=== PATIENT | female | born 1970 | race Caucasian/White ===

== ENCOUNTER 2016-12-10 22:47 | Emergency (ER) | payer BC ==
[2016-12-10 22:58] VITALS: RESP 18
[2016-12-10] MEDS ORDERED: KETOROLAC 30 MG/ML 1 ML VIAL IVP STA (23:02)
[2016-12-10] MEDS ORDERED: SODIUM CHLORIDE 0.9% 500 ML IV STA (23:02)
--- NOTE | 2016-12-10 23:07 | ED ---
Chest Pain HPI - General Chief Complaint: Chest Pain Stated Complaint: Chest Pain Time Seen by Provider: 12/10/16 22:52 Source: patient, RN notes reviewed Mode of arrival: wheelchair Limitations: no limitations - History of Present Illness Initial Comments: This is a 46-year-old female with a benign past medical history who presents with complaints of the onset of chest heaviness for the past several days. She states currently is 78/10 severity increases with deep breathing and certain movements. She is a smoker she quit about 10 years ago she is not recall doing anything strenuous she does state her ALLERGIES which are seasonal have been acting up and believes this may be part was going on. Also of note she did have Botox injections for TMJ 4 days ago. She is not sure whether this may be related. She has any fevers chills sweats she has no known history of any lung problems or heart disease. No abdominal pain no other symptoms to report at this time. MD Complaint: chest pain - Related Data Previous Rx's Medication Instructions Recorded Ibuprofen [Motrin] 600 mg PO Q6HR PRN #20 tab 12/11/16 Allergies Allergy/AdvReac Type Severity Reaction Status Date / Time No Known Allergies Allergy Verified 12/10/16 22:58 Review of Systems ROS Statement: Those systems with pertinent positive or pertinent negative responses have been documented in the HPI. ROS Other: All systems not noted in ROS Statement are negative. EKG Findings - EKG Results: EKG: interpreted by MEGAN, sinus rhythm (Normal sinus rhythm rate is 70. Interval 146 QRS duration 80 QT since QTC of 372/401 this is a normal-appearing EKG) Past Medical History Past Medical History: No Reported History History of Any Multi-Drug Resistant Organisms: None Reported Past Surgical History: Hysterectomy Past Psychological History: No Psychological Hx Reported Smoking Status: Former smoker Past Alcohol Use History: Occasional Past Drug Use History: None Reported General Exam - General Exam Comments Initial Comments: This is a well-developed well-nourished awake alert oriented x 3 female Limitations: no limitations General appearance: alert, in no apparent distress Head exam: Present: atraumatic, normocephalic, normal inspection Eye exam: Present: normal appearance, PERRL, EOMI. Absent: scleral icterus, conjunctival injection, periorbital swelling ENT exam: Present: mucous membranes dry Neck exam: Present: normal inspection. Absent: tenderness, meningismus, lymphadenopathy Respiratory exam: Present: normal lung sounds bilaterally, chest wall tenderness (Reproducible discomfort to palpation of the costochondral costal sternal margins.). Absent: respiratory distress, wheezes, rales, rhonchi, stridor Cardiovascular Exam: Present: regular rate, normal rhythm, normal heart sounds. Absent: systolic murmur, diastolic murmur, rubs, gallop, clicks GI/Abdominal exam: Present: soft, normal bowel sounds. Absent: distended, tenderness, guarding, rebound, rigid Extremities exam: Present: normal inspection, full ROM, normal capillary refill. Absent: tenderness, pedal edema, joint swelling, calf tenderness Back exam: Present: normal inspection Neurological exam: Present: alert, oriented X3, CN II-XII intact Psychiatric exam: Present: normal affect, normal mood Skin exam: Present: warm, dry, intact, normal color. Absent: rash Course Vital Signs 12/10/16 12/10/16 12/11/16 22:56 23:20 00:17 Temperature 98.9 F 98.7 F Pulse Rate 89 63 68 Pulse Rate [ 63 Sledger ] Respiratory 18 18 18 Rate Blood Pressure 136/82 133/72 111/64 O2 Sat by Pulse 97 99 97 Oximetry Chest Pain MDM - MDM I did review the imaging and reports no acute findings. I did a long discussion with the patient and her regarding the findings the patient is pain-free at this time presentation is consistent with costochondritis and chest wall pain. Patient will be placed on anti-inflammatories Disposition Clinical Impression: Chest wall syndrome, Costalchondritis Disposition: HOME SELF-CARE Condition: Good Instructions: Costochondritis (ED) Prescriptions: Ibuprofen [Motrin] 600 mg PO Q6HR PRN #20 tab PRN Reason: Pain Referrals: Epifanio Hutchinson MD [Primary Care Provider] - 1-2 days
[2016-12-10 23:18] LABS: Basophils # (A) 0.1 k/uL (0-0.2); Basophils % (A) 1 %; CH 31.1; CHCM 33.7; Eosinophils # (A) 0.3 k/uL (0-0.7); Eosinophils % (A) 4 %; HCT 41.8 % (34.0-46.0); HDW 2.17; HGB 13.9 gm/dL (11.4-16.0); Luc # (Auto) 0.19; Luc % (Auto) 2; Lymphocytes # (A) 3.3 k/uL (1.0-4.8); Lymphocytes % (A) 37 %; MCH 30.9 pg (25.0-35.0); MCHC 33.3 g/dL (31.0-37.0); MCV 92.8 fL (80.0-100.0); Mean Platelet Volume 7.4; Monocytes # (A) 0.4 k/uL (0-1.0); Monocytes % (A) 5 %; Neutrophils # (A) 4.5 k/uL (1.3-7.7); Neutrophils % (A) 52 %; RDW 13.1 % (11.5-15.5); WBC 8.8 k/uL (3.8-10.6); WBC (Perox) 9.06
[2016-12-10 23:30] LABS: ALT 27 U/L (9-52); AST 23 U/L (14-36); Alkaline Phosphatase 61 U/L (38-126); Amylase 87 U/L (30-110); Anion Gap 9 mmol/L; Blood Urea Nitrogen 18 mg/dL (7-17); Calcium 9.4 mg/dL (8.4-10.2); Carbon Dioxide 22 mmol/L (22-30); Chloride 108 mmol/L (98-107); Glucose 82 mg/dL (74-99); Magnesium 2.1 mg/dL (1.6-2.3); Non-African American GFR(MDRD) >60 (>60 ml/min/1.73 sqM); Potassium 4.4 mmol/L (3.5-5.1); Sodium 139 mmol/L (137-145); Total Bilirubin 0.4 mg/dL (0.2-1.3); Total Protein 6.7 g/dL (6.3-8.2)
[2016-12-10 23:37] LABS: Partial Thromboplastin Time 26.6 sec (22.0-30.0)
[2016-12-10 23:44] LABS: Creatine Kinase 88 U/L (30-135)
[2016-12-10 23:58] LABS: Creatine Kinase MB 0.7 ng/mL (0.0-2.4); Troponin I <0.012 ng/mL (0.000-0.034)
[2016-12-11 00:18] VITALS: BP 111/64; PULSE 68; TEMP 98.7
--- NOTE | 2016-12-11 00:23 | XR ---
EXAM: XR Chest, 2 Views CLINICAL HISTORY: Reason: Chest Pain TECHNIQUE: Frontal and lateral views of the chest. COMPARISON: No relevant prior studies available. FINDINGS: Lungs: Unremarkable. No consolidation. Pleural space: Unremarkable. No pneumothorax. Heart: Unremarkable. No cardiomegaly. Mediastinum: Unremarkable. Bones/joints: Unremarkable. IMPRESSION: No evidence of acute cardiopulmonary disease.
== END 2016-12-11 00:54 | disposition home or self-care (01) ==
LOC: EC 22:47
DX: M94.0 Chondrocostal junction syndrome [Tietze] (principal); Z87.891 Personal history of nicotine dependence
CPT/HCPCS: 99285; 96374; 96361 ×2; 36415; 93005; 85379; 83880; 80053; 82150; 82550; 82553; 83690; 83735; 84484; 85025; 85610; 85730; 71020; J1885

== ENCOUNTER → 2018-06-22 | Outpatient (CLI) | payer BC ==
--- NOTE | 2018-06-26 08:42 | MM ---
Reason for exam: screening (asymptomatic). Last mammogram was performed 1 year and 10 months ago. History: Family history of breast cancer in maternal aunt. Physical Findings: A clinical breast exam by your physician is recommended on an annual basis and results should be correlated with mammographic findings. MG 3D Screening Mammo W/Cad Bilateral CC and MLO view(s) were taken. Prior study comparison: August 30, 2016, mammogram, performed at [facility]. May 15, 2015, mammogram, performed at [facility]. The breast tissue is extremely dense which could obscure a lesion on mammography. No significant changes when compared with prior studies. ASSESSMENT: Benign, BI-RAD 2 RECOMMENDATION: Routine screening mammogram of both breasts in 1 year.
== END ==
LOC: RADMAMWWP 07:24
PROVIDERS: ATTEND Family Medicine
DX: Z12.31 Encounter for screening mammogram for malignant neoplasm of breast (principal)
CPT/HCPCS: 77063; 77067

== ENCOUNTER → 2020-04-15 | Outpatient (CLI) | payer BC ==
--- NOTE | 2020-04-17 11:55 | MR ---
EXAMINATION TYPE: MR brain wo/w con DATE OF EXAM: 04/15/2020 COMPARISON: HISTORY: Seizure 2.5 months ago TECHNIQUE: Multiplanar, multisequence images of the brain and brainstem is performed without and with IV contras t, utilizing 5.5 mL intravenous Gadavist . FINDINGS: Diffusion weighted images demonstrate no evidence of a recent infarct or other diffusion ab normality. There is no extra-axial fluid collection or significant white matter signal abnormality, some scattered hyperintensities are present in the frontal white matter, approximately 4-5 lesions on inversion recovery T2-weighted sequences, the largest on axial image 24 the left frontal lobe measur es only 2 to 3 mm, right frontal white matter axial image 23 measures 3 to 4 mm. The ventricular sys tem and cisternal spaces are normal in size and appearance. The brain volume is age appropriate. Midline structures demonstrate normal morphology. The craniocervical junction appears within normal limits. Post contrast images demonstrate no abnormal enhancement. The dural venous sinuses appear pa tent. The visualized sinuses are clear and the globes are intact. IMPRESSION: Nonspecific white matter demyelination could be related to hypertension, migraine headach es, vasculitis, Lyme disease, multiple sclerosis is not excluded
== END | disposition home or self-care (01) ==
LOC: RADMRIMAIN 19:50
PROVIDERS: ATTEND Nurse Practitioner Family
DX: G37.9 Demyelinating disease of central nervous system, unspecified (principal)
CPT/HCPCS: 70553; A9585

== ENCOUNTER 2021-03-25 21:35 | Observation (INO) | payer BC ==
--- NOTE | 2021-03-25 21:57 | ED ---
Seizure HPI - General Stated Complaint: Seizure Time Seen by Provider: 03/25/21 21:51 - History of Present Illness Initial Comments: This patient is a 50-year-old woman who presents to be evaluated after having had a generalized tonic-clonic seizure. The patient states she had one previous seizure approximately one year ago, with an MRI following that. Patient reports that she had been feeling a bit run down all of today. She thought that may been related to having had a covid booster vaccine a week ago. The patient does not recall the episode, but it was described that she had lost consciousness, and tonic-clonic movements for approximately postictal period lasting minutes. Patient denies trauma. She feels she is back to baseline and her agrees. MD Complaint: seizure -: minutes(s) Description of Episode: loss of consciousness, tonic-clonic movement, post-event confusion Duration of Episode: 1 -: minutes(s) Trauma: No Seizure History: none Place: home Possible Precipitating Event: none Associated Symptoms: denies other symptoms Treatments Prior to Arrival: none - Related Data Home Medications Medication Instructions Recorded Confirmed Cholecalciferol [Vitamin D3 (25 25 mcg PO DAILY 03/25/21 03/25/21 Mcg = 1000 Iu)] Loratadine-Pseudoeph 10-240 mg 1 tab PO DAILY PRN 03/25/21 03/25/21 [Claritin-D 24 Hour] Allergies Allergy/AdvReac Type Severity Reaction Status Date / Time No Known Allergies Allergy Verified 03/25/21 22:05 Review of Systems ROS Statement: Those systems with pertinent positive or pertinent negative responses have been documented in the HPI. ROS Other: All systems not noted in ROS Statement are negative. Constitutional: Denies: fever, chills Eyes: Denies: vision change Respiratory: Denies: cough, dyspnea Cardiovascular: Denies: chest pain, palpitations, edema Gastrointestinal: Denies: abdominal pain, nausea, vomiting, diarrhea Genitourinary: Denies: dysuria, hematuria Musculoskeletal: Denies: back pain Skin: Denies: rash Neurological: Denies: headache, weakness, numbness, confusion Past Medical History Past Medical History: No Reported History History of Any Multi-Drug Resistant Organisms: None Reported Past Surgical History: Hysterectomy Past Psychological History: No Psychological Hx Reported Past Alcohol Use History: Occasional Past Drug Use History: None Reported General Exam General appearance: alert, in no apparent distress Head exam: Present: atraumatic, normocephalic, normal inspection Eye exam: Present: normal appearance, PERRL, EOMI. Absent: scleral icterus, conjunctival injection, nystagmus ENT exam: Present: normal oropharynx, mucous membranes moist Neck exam: Present: normal inspection, full ROM. Absent: tenderness, meningismus Respiratory exam: Present: normal lung sounds bilaterally. Absent: respiratory distress, wheezes, rales, rhonchi, stridor Cardiovascular Exam: Present: regular rate, normal rhythm, normal heart sounds. Absent: systolic murmur, diastolic murmur, rubs, gallop GI/Abdominal exam: Present: soft. Absent: distended, tenderness, guarding, rebound, rigid, mass Extremities exam: Present: normal inspection, normal capillary refill. Absent: pedal edema, calf tenderness Back exam: Present: normal inspection Neurological exam: Present: alert, oriented X3, CN II-XII intact. Absent: motor sensory deficit Skin exam: Present: warm, dry, intact, normal color. Absent: rash Course Vital Signs 03/25/21 03/25/21 21:57 22:05 Temperature 97.7 F Pulse Rate 97 101 H Respiratory 20 20 Rate Blood Pressure 133/81 O2 Sat by Pulse 97 97 Oximetry Medical Decision Making - Lab Data Result diagrams: 03/25/21 22:29 03/25/21 22:29 Lab Results 03/25/21 03/25/21 Range/Units 22:29 22:29 WBC 8.3 (3.8-10.6) k/uL RBC 4.24 (3.80-5.40) m/uL Hgb 13.0 (11.4-16.0) gm/dL Hct 38.8 (34.0-46.0) % MCV 91.6 (80.0-100.0) fL MCH 30.6 (25.0-35.0) pg MCHC 33.4 (31.0-37.0) g/dL RDW 11.8 (11.5-15.5) % Plt Count 262 (150-450) k/uL MPV 7.4 Neutrophils % 65 % Lymphocytes % 23 % Monocytes % 5 % Eosinophils % 5 % Basophils % 1 % Neutrophils # 5.4 (1.3-7.7) k/uL Lymphocytes # 1.9 (1.0-4.8) k/uL Monocytes # 0.4 (0-1.0) k/uL Eosinophils # 0.4 (0-0.7) k/uL Basophils # 0.1 (0-0.2) k/uL Sodium 134 L (137-145) mmol/L Potassium 3.9 (3.5-5.1) mmol/L Chloride 104 (98-107) mmol/L Carbon Dioxide 23 (22-30) mmol/L Anion Gap 7 mmol/L BUN 23 H (7-17) mg/dL Creatinine 0.80 (0.52-1.04) mg/dL Est GFR (CKD-EPI)AfAm >90 (>60 ml/min/1.73 sqM) Est GFR (CKD-EPI)NonAf 88 (>60 ml/min/1.73 sqM) Glucose 124 H (74-99) mg/dL Calcium 8.8 (8.4-10.2) mg/dL Magnesium 2.2 (1.6-2.3) mg/dL Total Bilirubin 0.4 (0.2-1.3) mg/dL AST 33 (14-36) U/L ALT 26 (4-34) U/L Alkaline Phosphatase 57 (38-126) U/L Total Protein 6.4 (6.3-8.2) g/dL Albumin 3.8 (3.5-5.0) g/dL - EKG Data -: EKG Interpreted by Ne EKG shows normal: sinus rhythm (Normal), axis (Normal), intervals (Normal), QRS complexes (Normal), ST-T waves (Normal) Rate: normal (Rate 90 bpm) Interpretation: normal EKG Disposition Clinical Impression: Generalized seizure Disposition: ADMITTED IP TO [facility] Condition: Good Instructions (If sedation given, give patient instructions): Seizure/Epilepsy Discharge Instructions & Follow-Up Is patient prescribed a controlled substance at d/c from ED?: No Referrals: Arely Starr NPC [STAFF PHYSICIAN] - 1-2 days
[2021-03-25] MEDS ORDERED: SODIUM CHLORIDE 0.9% 500 ML 500 ML IV STA (22:05)
[2021-03-25 22:43] LABS: Basophils # (A) 0.1 k/uL (0-0.2); Basophils % (A) 1 %; Eosinophils # (A) 0.4 k/uL (0-0.7); Eosinophils % (A) 5 %; HCT 38.8 % (34.0-46.0); Lymphocytes # (A) 1.9 k/uL (1.0-4.8); Lymphocytes % (A) 23 %; MCH 30.6 pg (25.0-35.0); MCHC 33.4 g/dL (31.0-37.0); MCV 91.6 fL (80.0-100.0); Mean Platelet Volume 7.4; Monocytes # (A) 0.4 k/uL (0-1.0); Monocytes % (A) 5 %; Neutrophils # (A) 5.4 k/uL (1.3-7.7); Neutrophils % (A) 65 %; Platelet Count 262 k/uL (150-450); RBC 4.24 m/uL (3.80-5.40); RDW 11.8 % (11.5-15.5); WBC 8.3 k/uL (3.8-10.6)
[2021-03-25 22:57] LABS: ALT 26 U/L (4-34); AST 33 U/L (14-36); African American GFR (CKD) >90 (>60 ml/min/1.73 sqM); Albumin 3.8 g/dL (3.5-5.0); Alkaline Phosphatase 57 U/L (38-126); Anion Gap 7 mmol/L; Blood Urea Nitrogen 23 mg/dL (7-17); Calcium 8.8 mg/dL (8.4-10.2); Carbon Dioxide 23 mmol/L (22-30); Chloride 104 mmol/L (98-107); Glucose 124 mg/dL (74-99); Magnesium 2.2 mg/dL (1.6-2.3); Non-African American GFR(CKD) 88 (>60 ml/min/1.73 sqM); Potassium 3.9 mmol/L (3.5-5.1); Sodium 134 mmol/L (137-145); Total Bilirubin 0.4 mg/dL (0.2-1.3); Total Protein 6.4 g/dL (6.3-8.2)
[2021-03-25] MEDS ORDERED: NALOXONE 0.4 MG/ML 1 ML VIAL IV PRN (23:35)
[2021-03-25] MEDS ORDERED: LORazepam 2 MG/ML INJ IV PRN (23:37)
[2021-03-25] MEDS ORDERED: SODIUM CHLORIDE 0.9% 1,000 ML IV SCH (23:45)
[2021-03-26] MEDS ORDERED: levETIRAcetam IV 1,000 MG in SALINE 1 100ML.BAG IVPB STA (01:59)
[2021-03-26] MEDS ORDERED: IBUPROFEN 400 MG TAB PO PRN (02:53)
--- NOTE | 2021-03-26 02:53 | P.HPIM ---
History of Present Illness H&P Date: 03/26/21 Chief Complaint: seizure activity 50 year old female with no significant past medical history patient comes in after experiencing a tonic clonic seizure episode at home while resting doing nothing while watching TV. no report of head trauma , no recent new meds, no recent new OTC product. denies any illicit drugs or heavy alcohol use. denies any fever , chills, denies any recent trips in the [place]. she does not recall the episode, however it was witnessed by her who describes tonic clonic seizures, loss of consciousness, mouth frothing. no loss of bladder or bowel control patient had brief post ictal period and was back to her normal self quickly . she felt that she has bit her tongue in the ED , patient was not showing any signs of focal neuro deficits. no headache, CT of the brain was not done. MRI was orderd. as patient did have some abnormal finding on prior MRI done about 1 year ago. when she had her first episode of seizure. Review of Systems Pertinent positives as noted in HPI. All other systems were reviewed and are negative Past Medical History Past Medical History: No Reported History History of Any Multi-Drug Resistant Organisms: None Reported Past Surgical History: Hysterectomy Past Psychological History: No Psychological Hx Reported Past Alcohol Use History: Occasional Past Drug Use History: None Reported - Past Family History family Family Medical History: No Reported History Medications and Allergies Home Medications Medication Instructions Recorded Confirmed Type Cholecalciferol [Vitamin D3 (25 25 mcg PO DAILY 03/25/21 03/25/21 History Mcg = 1000 Iu)] Loratadine-Pseudoeph 10-240 mg 1 tab PO DAILY PRN 03/25/21 03/25/21 History [Claritin-D 24 Hour] Allergies Allergy/AdvReac Type Severity Reaction Status Date / Time No Known Allergies Allergy Verified 03/25/21 22:05 Physical Exam Vitals: Vital Signs Temp Pulse Resp BP Pulse Ox 03/26/21 00:38 69 20 98 03/25/21 22:05 101 H 20 97 03/25/21 21:57 97.7 F 97 20 133/81 97 Intake and Output 03/25/21 03/25/21 03/26/21 14:59 22:59 06:59 Other: Weight 54.431 kg Constitutional: No acute distress, conversant, pleasant Eyes: Anicteric sclerae, moist conjunctiva, Pupils equal round reactive to light ENMT: NC/AT Oropharynx clear, small sore on the tongue left side. no erythema, or exudates Neck: Supple, FROM, no masses, or JVD No carotid bruits No thyromegaly Lungs: Clear to auscultation Clear to percussion Normal respiratory effort, no accessory muscle use Cardiovascular: Heart regular in rate and rhythm, No murmurs, gallops, or rubs No peripheral edema Abdominal: Soft Nontender, no guarding, rebound or rigidity Abdomen moving with respiration Normoactive bowel sounds No hepatomegaly, No splenomegaly No palpable mass No abdominal wall hernia noted Skin: Normal temperature, tone, texture, turgor No induration No subcutaneous nodules No rash, lesions No ulcers Extremities: No digital cyanosis No clubbing Pedal pulses intact and symmetrical Radial pulses intact and symmetrical No calf tenderness Psychiatric: Alert and oriented to person, place and time Appropriate affect fair judgement Neuro Muscles Strength 5/5 in all 4 extremities Sensation to light touch grossly present throughout Cranial nerves II-XII grossly intact No focal sensory deficits Lymphatics: no palpable cervical or supraclavicular , or inguinal lymph nodes Results CBC & Chem 7: 03/25/21 22:29 03/25/21 22:29 Labs: Abnormal Lab Results - Last 24 Hours (Table) 03/25/21 Range/Units 22:29 Sodium 134 L (137-145) mmol/L BUN 23 H (7-17) mg/dL Glucose 124 H (74-99) mg/dL Assessment and Plan Assessment: tonic clonic seizure episode currently back to baseline, no focal neuro deficit. no CT performed, MRI of the brain ordered due to history of abnormal non specific lesions on prior MRI a year ago neuro checks load with keppra 1 gm seizure precautions check EEG neuro consult labs reviewed CODE STATUS:full code DVT prophylaxis: mechanical Discussed with: Patient, ER, RN Anticipated length of stay < than [address]: home A total of 65 minutes was spent on the care of this complex patient more than 50% of the time was spent in counseling and care coordination.
--- NOTE | 2021-03-26 11:49 | EEG ---
ELECTROENCEPHALOGRAM REPORT DATE OF SERVICE: 03/26/2021 PREAMBLE: This is a 50-year-old female with generalized tonic-clonic seizure for the second time in her life time. EEG FINDING: This is a 21 channel digital EEG recorded with video competent, utilizing 10/20 international system with referential and bipolar montages. Background consists of well developed, well regulated, moderate voltage activity in 9 hertz alpha. Background is posterior dominant and reactive to eye opening and closing. Photic driving response was seen with some flash frequencies. The patient became drowsy with appearance of bilaterally symmetric theta frequency rhythm. Stage 2 sleep was obtained with ample amount of sleep spindles, vertex waves and K complexes. No focal or generalized epileptiform activity was seen. EKG channel showed no arrhythmia. IMPRESSION: This is a normal EEG during wakefulness, drowsiness and stage 2 sleep. No epileptiform activity was seen. MMPAVEL / INESSA: [id number] /
--- NOTE | 2021-03-26 13:47 | P.PN ---
Subjective Progress Note Date: 03/26/21 Hospital course: Patient is a very pleasant 50-year-old female who presented to the emergency department on 03/25/21 status post witnessed generalized tonic-clonic seizure activity. This was patient's second witnessed seizure, as she reportedly had a previous noted seizure approximately one year ago in which patient underwent an MRI which revealed nonspecific white matter demyelination. Patient is currently admitted under the services with consultation to neurology. Physical exam: Patient seen and fully evaluated at bedside this morning. She was eating breakfast and tolerating well. Patient reports that she remembers yesterday she was feeling kind of crummy all day. She states nothing specific, just felt as if she was excessively fatigued and states that over the past couple days she did have a low-grade temp after receiving her COVID booster vaccine, but states nothing over 100F patient denies recently or currently experiencing any headache, lightheadedness, dizziness, changes in her vision or hearing, tinnitus, chest pain, palpitations, shortness of breath, dyspnea with exertion, cough or congestion, abdominal pain, nausea, vomiting, or experiencing any numbn ess/tingling/weakness in her extremities. CBC and BMP unremarkable with the exception of mild hyponatremia with sodium of 135. Patient awaiting for EEG and MRI to be completed. Vital signs reviewed and stable. General: Nontoxic, no distress and appears stated age. Derm: Skin warm and dry, normal coloration for ethnicity. Head: Atraumatic, normocephalic and symmetric. Eyes: EOMs intact, no lid lag, and anicteric sclera Mouth: no lip lesions, mucus membranes moist Cardiovascular: regular rate and rhythm with normal S1S2, no murmur, positive posterior tibial pulses bilaterally, and cap refill < 2 seconds. Lungs: Respirations even, regular, and unlabored on room air. Lungs CTA bilat erally, no rhonchi, no rales, no wheezing, and no accessory muscle usage. Abdominal: soft, nontender to palpation, no guarding, no appreciable organomegaly Ext: ROM intact. No gross muscle atrophy, no edema, no contractures Neuro: Speech clear, face symmetrical and CN II-XII grossly intact with no noted focal neuro deficits Psych: Alert and oriented to person, place, time, and situation. Appropriate and pleasant affect. Assessment and Plan of Care: Tonic-clonic seizure activity Seizure precautions, fall precautions, and aspiration precautions in place. Patient received loading dose of Keppra the emergency department. Neurology consulted, appreciate further recommendations. EEG MRI Telemetry monitoring. Neuro checks Ativan 2 mg IVP as needed for active seizure activity. Mild Hyponatremia Patient received 1 L bolus 0.9% normal saline in the ED, we will continue to monitor with repeat a.m. labs. CODE STATUS: Full code DVT prophylaxis: SCDs Discussed with: Patient, patient's father, and RN Anticipated discharge date: Clinical course to determine Anticipated discharge place: Home A total of 45 minutes was spent on the care of this complex patient more than 50% of the time was spent in counseling and care coordination. Objective - Vital Signs Vital signs: Vital Signs Temp 97.7 F 03/25/21 21:57 Pulse 83 03/26/21 06:21 Resp 16 03/26/21 06:21 BP 122/72 03/26/21 06:21 Pulse Ox 98 03/26/21 06:21 Intake & Output 03/25/21 03/26/21 03/26/21 18:59 06:59 18:59 Weight 54.431 kg - Labs CBC & Chem 7: 03/25/21 22:29 03/25/21 22:29 Labs: Abnormal Lab Results - Last 24 Hours (Table) 03/25/21 Range/Units 22:29 Sodium 134 L (137-145) mmol/L BUN 23 H (7-17) mg/dL Glucose 124 H (74-99) mg/dL
--- NOTE | 2021-03-26 14:12 | MR ---
EXAMINATION TYPE: MR brain wo/w con DATE OF EXAM: 03/26/2021 COMPARISON: MRI brain April 15, 2020 HISTORY: Seizure TECHNIQUE: Multiplanar, multisequence images of the brain and brainstem is performed without and with IV contras t, utilizing 6 mL intravenous Gadavist . FINDINGS: Diffusion weighted images demonstrate no evidence of a recent infarct or other diffusion ab normality. The ventricular system and cisternal spaces are normal in size and appearance. The brain volume is age appropriate. T2 coronal weighted images show hippocampal gyri to appear symmetric and f elt within normal limits. Occasional tiny focus of T2 hyperintensity, less than 5 distinct lesions. S table 2 to 3 mm left frontal lesion axial image 21 for reference. Midline structures demonstrate normal morphology. The craniocervical junction appears within normal limits. Post contrast images demonstrate no abnormal enhancement. The dural venous sinuses appear pa tent. The visualized sinuses are clear and the globes are intact. IMPRESSION: No new or acute findings are evident.
[2021-03-26 15:03] VITALS: BP 110/76; PULSE 76; RESP 16; TEMP 98.6
--- NOTE | 2021-03-26 16:03 | P.CNNES ---
History of Present Illness Consult date: 03/26/21 Requesting physician: Dedrick Vargas Reason for Consult: Generalized tonic-clonic seizure History of Present Illness: Patient is a 50-year-old female came to the hospital by ambulance yesterday at 9:35 PM for a second seizure of her lifetime. Patient states that yesterday at around 8:30 PM she was watching TV and without any warning, she had a seizure and apparently woke up when she was being loaded into the ambulance. She bit right side of her tongue but there was no loss of control of urine. Her reported a grand mal seizure. According to the EMS flow sheet, patient's has mentioned that this e vening she was complaining that she felt weird strange in away. Later while sitting in the chair, he stated that she had a full body shaking lasting about 30 seconds to a minute. He called 911. She was "out" for about 5 minutes after the seizure. Patient was alert, but confused at the time of EMS examination. Patient's vitals at the scene blood pressure 156/83, pulse rate 96, respirations 16, saturation 99%. Blood sugar 157. She has history of first seizure on 01/15/2020. She was up [place] when she was on her way home from the [facility] [place] when she had a seizure while she was seated in the car in the second row. She did not bit her tongue or lost control of urine. Patient was taken to [facility], where she was observed and discharged. Patient underwent MRI of the brain with and without contrast on 04/15/2020, which showed nonspecific white matter demyelination, could be related to hypertension, migraine headaches, vasculitis, Lyme disease, multiple sclerosis is not excluded. Patient was seen by a neurologist in [place], and had a zoom meeting, it was felt that patient probably had a seizure related to alcohol use and possible ongoing some virus infection. Patient apparently has gone to wine tasting up [place]. She had a few drinks. Patient was not placed on any an tiepileptic medication at that time. Patient does not remember having an EEG done ever in the past. Patient has been vaccinated and recently received the booster shot about a week ago. Patient's blood test shows normal CBC with MCV 91.6, sodium 134 potassium 3.9, normal renal functions, hepatic panel. Coronavirus PCR negative. Patient had an EKG shows normal sinus rhythm. Patient drinks 2-3 cups of coffee every day, does not drink pops. Patient has been diagnosed with hypersomnia, but denies any sleep deprivation for the previous few nights. Denies any family history of epilepsy. No previous history of seizures except as mentioned above. Patient states that she drinks 5-7 drinks a week. Typically she would drink 2 glasses of wine after work, about twice a week. Couple drinks on the weekend. She denies herself heavy drinking although she feels that she could cut back port ever she does. Denies any use of marijuana or any drugs. She has history of hysterectomy. Review of Systems As above. All other 14 point of review systems reviewed are unremarkable. Past Medical History Past Medical History: No Reported History History of Any Multi-Drug Resistant Organisms: None Reported Past Surgical History: Hysterectomy Past Psychological History: No Psychological Hx Reported Past Alcohol Use History: Occasional Past Drug Use History: None Reported - Past Family History family Family Medical History: No Reported History Medications and Allergies Home Medications Medication Instructions Recorded Confirmed Type Cholecalciferol [Vitamin D3 (25 25 mcg PO DAILY 03/25/21 03/25/21 History Mcg = 1000 Iu)] Loratadine-Pseudoeph 10-240 mg 1 tab PO DAILY PRN 03/25/21 03/25/21 History [Claritin-D 24 Hour] levETIRAcetam [Keppra] 500 mg PO BID #60 tab 03/26/21 Rx Allergies Allergy/AdvReac Type Severity Reaction Status Date / Time No Known Allergies Allergy Verified 03/25/21 22:05 Physical Examination - Vital Signs Vital Signs: Vital Signs Temp Pulse Resp BP Pulse Ox 03/26/21 06:21 83 16 122/72 98 03/26/21 03:10 81 16 126/73 03/26/21 00:38 69 20 98 03/25/21 22:05 101 H 20 97 03/25/21 21:57 97.7 F 97 20 133/81 97 Intake and Output 03/25/21 03/26/21 03/26/21 22:59 06:59 14:59 Other: Weight 54.431 kg Patient is a middle aged female, in no acute distress. Patient is alert awake oriented to time place and person. Speech and language functions are normal. Attention, concentration and fund of knowledge is adequate. On cranial examination, pupils are round and reacting to light, visual choi are full on confrontation, extraocular muscles are intact with no nystagmus. Face is symmetric, tongue protrudes to the midline. Palatal elevation and sensation normal, hearing and shoulder shrug normal, facial sensation normal. Shoulder shrug normal. On muscle strength testing, there is no pronator drift and the strength is normal in arms and legs distally and proximally. Deep tendon reflexes are 1 in the upper and lower extremities and plantars downgoing. Sensory to touch is equal with no neglect. Cerebellar function showed no ataxia for [id number] testing. No dysdiadochokinesia. Tone and bulk of muscles normal. Gait normal. On general examination, there is no carotid bruit or murmur, S1-S2 audible. Abdomen is soft nontender. Chest is clear. Peripheral pulses are present. No edema. Results - Laboratory Findings CBC and BMP: 03/25/21 22:29 03/25/21 22:29 Abnormal Lab Findings: Abnormal Labs 03/25/21 22:29 Sodium 134 L BUN 23 H Glucose 124 H Assessment and Plan Assessment: * Grand mal seizure. This is the second seizure after the first one on 01/15/2020. No obvious provoking factor has been identified. Patient does drink mildly, denies any heavy drinking and her MCV and hepatic panel are normal. All electrolytes are normal. Plan: * Patient underwent MRI of the brain today which shows no new findings. T2 coronal weighted images show hippocampal gyri to appear symmetrical and felt within normal limits. * EEG was performed today, which was normal awake drowsy and sleep EEG. No epileptiform activity was seen. * As this was a second seizure of her lifetime, and no obvious provoking factor has been identified, therefore chance of having third seizure is high. I would suggest continuing Keppra 500 mg twice a day. * Recommend patient follow up with neurologist as an outpatient. Patient may benefit from prolonged EEG. * Patient informed of [place] state law of no driving unless seizure free for 6 months, climbing ladders, operate dangerous machinery or unsupervised swimming. * Neurologically clear for discharge.
--- NOTE | 2021-03-27 07:29 | P.DS ---
Providers Date of admission: 03/25/21 23:35 Expected date of discharge: 03/27/21 Attending physician: Shavonne Walker MD Consults: 03/25/21 23:36 Consult Physician Routine Consulting Provider: Barb Lewis Consult Reason/Comments: Generalized tonic-clonic seizure Do you want consulting provider notified?: Yes [facility] Hospital Course: Discharge Diagnosis: Grand mal Seizure Mild Hyponatremia Hospital Course: Patient is a very pleasant 50-year-old female who presented to the emergency department on 03/25/21 status post witnessed generalized tonic-clonic seizure activity. This was patient's second witnessed seizure, as she reportedly had a previous noted seizure approximately one year ago in which patient underwent an MRI which revealed nonspecific white matter demyelination. Patient was admitted under our services with consultation to neurology. Patient reported that she remembers yesterday she was feeling kind of crummy all day. She states nothing specific, just felt as if she was excessively fatigued and states that over the past couple days she did have a low-grade temp after receiving her COVID booster vaccine, but states nothing over 100F patient denies recently or currently experiencing any headache, lightheadedness, dizziness, changes in her vision or hearing, tinnitus, chest pain, palpitations, shortness of breath, dyspnea with exertion, cough or congestion, abdominal pain, nausea, vomiting, or experiencing any numbness/tingling/weakness in her extremities. CBC and BMP unremarkable with the exception of mild hyponatremia with sodium of 135. EKG showing normal sinus rhythm at 90 bpm with no noted T-wave or ST abnormalities. EEG reported normal examination with no eliptiform activity seen. MRI showing no acute intracranial abnormalities revealing occasional tiny focus of T2 hyperintensity, less than 5 distinct lesions and stable 2-3 mm left frontal lesion. Patient was seen and fully evaluated by neurology, recommending placing patient on Keppra 500 mg twice daily due to high chance of having another seizure. Patient medically stable for discharge. Patient provided prescription for Keppra 500 mg twice a day and to follow up with neurologist in 1 week and PCP in 1-2 days. Please refer to progress note written earlier today to reveal a full detailed physical examination. Patient Condition at Discharge: Good Plan - Discharge Summary New Discharge Prescriptions: New levETIRAcetam [Keppra] 500 mg PO BID #60 tab Continue Loratadine-Pseudoeph 10-240 mg [Claritin-D 24 Hour] 1 tab PO DAILY PRN PRN Reason: Allergy Symptoms Cholecalciferol [Vitamin D3 (25 Mcg = 1000 Iu)] 25 mcg PO DAILY Discharge Medication List Cholecalciferol [Vitamin D3 (25 Mcg = 1000 Iu)] 25 mcg PO DAILY 03/25/21 [History] Loratadine-Pseudoeph 10-240 mg [Claritin-D 24 Hour] 1 tab PO DAILY PRN 03/25/21 [History] levETIRAcetam [Keppra] 500 mg PO BID #60 tab 03/26/21 [Rx] Follow up Appointment(s)/Referral(s): Arely Starr NPC [STAFF PHYSICIAN] - 1-2 days Dandre Cano MD [Medical Doctor] - 1 Week Patient Instructions/Handouts: Seizure/Epilepsy Discharge Instructions & Follow-Up Discharge Disposition: HOME SELF-CARE
== END 2021-03-26 18:22 | disposition home or self-care (01) ==
LOC: EC 21:35 → 6NMEDSUR 23:35
PROVIDERS: ADMIT Internal Medicine; ATTEND Internal Medicine
DX: G40.409 Other generalized epilepsy and epileptic syndromes, not intractable, without status epilepticus (principal); E87.1 Hypo-osmolality and hyponatremia; G47.10 Hypersomnia, unspecified; Z20.822 Contact with and (suspected) exposure to COVID-19; Z79.899 Other long term (current) drug therapy; Z90.710 Acquired absence of both cervix and uterus; Z71.89 Other specified counseling
CPT/HCPCS: 96365; 96361; 99285; 36415; 94760; 95819; 93005; 80053; 83735; 85025; 86618; 87635; 70553; G0378; J1953; A9585

== ENCOUNTER 2022-03-14 09:42 | Emergency (ER) | payer BC ==
[2022-03-14 09:54] VITALS: BP 136/75; PULSE 89; RESP 16; TEMP 97.2
--- NOTE | 2022-03-14 10:52 | US ---
EXAMINATION TYPE: US venous doppler duplex LE DATE OF EXAM: 03/14/2022 10:40 AM COMPARISON: NONE CLINICAL HISTORY: eval for dvt. pain SIDE PERFORMED: Bilateral TECHNIQUE: The lower extremity deep venous system is examined utilizing real time linear array sonog hafsa with graded compression, doppler sonography and color-flow sonography. VESSELS IMAGED: Common Femoral Vein Deep Femoral Vein Greater Saphenous Vein * Femoral Vein Popliteal Vein Small Saphenous Vein * Proximal Calf Veins (* superficial vessels) Right Leg: Negative for DVT Left Leg: Negative for DVT IMPRESSION: Grayscale, color doppler, spectral doppler imaging performed of the deep veins of the lo wer extremities. There is normal flow, compressibility, vascular waveforms.
--- NOTE | 2022-03-14 11:10 | ED ---
General Adult HPI - General Chief complaint: Extremity Injury, Lower Stated complaint: Leg Pain, Poss Blood Clot, Sent by PCP Time Seen by Provider: 03/14/22 09:55 Source: patient, RN notes reviewed, old records reviewed Mode of arrival: ambulatory Limitations: no limitations - History of Present Illness Initial comments: Patient is a 51-year-old female with a recent hospital stay for seizure disorder with past medical history remarkable for seizures presents emergency department over concern for DVT. She did refuse prophylactic heparin therapy while she was admitted. She states that since discharged 10 days ago, she is been having crampy right calf pain and intermittent crampy left calf pain. Denies any spread of the pain. Denies any neuro deficits. Denies any weakness. Denies any chest pain or shortness of breath. Denies any cough, fevers, chills. Denies any nausea, vomiting, abdominal pain. She was sent by her PCP to obtain DVT scans for bilateral lower extremities. No history of blood clots. - Related Data Home Medications Medication Instructions Recorded Confirmed Cholecalciferol [Vitamin D3 (25 25 mcg PO DAILY 03/25/21 03/25/21 Mcg = 1000 Iu)] Loratadine-Pseudoeph 10-240 mg 1 tab PO DAILY PRN 03/25/21 03/25/21 [Claritin-D 24 Hour] Previous Rx's Medication Instructions Recorded levETIRAcetam [Keppra] 500 mg PO BID #60 tab 03/26/21 Allergies Allergy/AdvReac Type Severity Reaction Status Date / Time No Known Allergies Allergy Verified 03/14/22 09:51 Review of Systems ROS Statement: Those systems with pertinent positive or pertinent negative responses have been documented in the HPI. Review of Systems: CONST: Denies fever EYES: Denies blurry vision ENT: Denies nasal congestion C/V: Denies Chest pain RESP: Denies shortness of breath GI: Denies abdominal pain : Denies dysuria SKIN: Denies rash. MSK: Endorses intermittent calf pain. NEURO: Denies headache ROS Other: All systems not noted in ROS Statement are negative. Past Medical History Past Medical History: No Reported History, Seizure Disorder History of Any Multi-Drug Resistant Organisms: None Reported Past Surgical History: Hysterectomy Past Psychological History: No Psychological Hx Reported Smoking Status: Never smoker Past Alcohol Use History: Occasional Past Drug Use History: None Reported - Past Family History family Family Medical History: No Reported History General Exam - General Exam Comments Initial Comments: General: Appears in no acute distress. HEAD: Normal with no signs of head trauma. EYES: PERRLA, EOMI, conjunctiva normal, no discharge. ENT: Hearing grossly intact, normal oropharynx. RESPIRATORY: Clear breath sounds bilaterally. No wheezes or rhonchi. No respiratory distress. Hypoxia. C/V: Regular rate and rhythm. S1 and S2 auscultated. Peripheral pulses 2+ and intact throughout. No peripheral edema. ABD: Abd is soft, nontender, nondistended EXT: Normal range of motion, no obvious deformity. No calf tenderness on palpation. Bilateral lower extremities within normal limits. SKIN: No rashes or lesions observed on exposed skin. NEURO: Alert and oriented 4. No focal sensory strength deficits. Neurovascular intact throughout. Limitations: no limitations Course Vital Signs 03/14/22 09:51 Temperature 97.2 F L Pulse Rate 89 Respiratory 16 Rate Blood Pressure 136/75 O2 Sat by Pulse 100 Oximetry Medical Decision Making - Medical Decision Making Based on the patient's presentation and physical exam, I'm concerned for possible DVT for the patient. My suspicion is low. No concern for pulmonary embolism at this time. We do not need to obtain laboratory studies at this time. Bilateral lower extremity duplexes will be obtained. Patient was in agreement this plan. Vital signs within acceptable limits. Bilateral duplexes were negative for DVT in both lower extremities. I updated the patient. She expressed understanding. She was in agreement this plan. I instructed the patient to follow up with their PCP in the next 1-3 days. I explained that the patient should return to the emergency department if they experience any worsening symptoms. Strict return precautions were discussed with the patient. The patient expressed understanding of these instructions. I answered all questions that the patient had. The patient was discharged home in good condition with their prescriptions and follow up information. Disposition Clinical Impression: Muscle spasm Disposition: HOME SELF-CARE Condition: Good Instructions (If sedation given, give patient instructions): Muscle Spasm (ED) Is patient prescribed a controlled substance at d/c from ED?: No Referrals: Arely Henry MD [Primary Care Provider] - 1-2 days Time of Disposition: 11:00
== END 2022-03-14 11:14 | disposition home or self-care (01) ==
LOC: EC 09:42
DX: M62.838 Other muscle spasm (principal)
CPT/HCPCS: 93970; 99283

== ENCOUNTER → 2022-03-29 | Outpatient (CLI) | payer BC ==
--- NOTE | 2022-03-30 09:29 | MM ---
Reason for Exam: Screening (asymptomatic). Last screening mammogram was performed 12 month(s) ago. Indicated Problems: Pain of the left side (Global) for 2 Week(s). Patient History: Menarche at age 16. First Full-Term at age 24. Right ovary removed at age 32. Hysterectomy at age 32. Maternal aunt had breast cancer. Risk Values: Yuly 5 year model risk: 0.8%. NCI Lifetime model risk: 7.5%. Prior Study Comparison: 05/15/2015 Screening Mammogram, [facility]. 08/30/2016 Screening Mammogram, [facility]. 06/22/2018 Bilateral Screening Mammogram, [facility]. 12/27/2019 Bilateral MG 3D screening mammo w/cad, [facility]. 03/12/2021 Bilateral MG 3D screening mammo w/cad, [facility]. Tissue Density: The breast tissue is heterogeneously dense. This may lower the sensitivity of mammography. Findings: Analyzed By CAD. Increased grouped calcifications in the left breast middle depth in the posterior nipple line best appreciated on CC imaging at approximately 17 mm from the nipple. The right breast demonstrates no suspicious group of microcalcifications or new suspicious mass in either breast. Overall Assessment: Incomplete: need additional imaging evaluation, BI-RAD 0 Management: Diagnostic Mammogram of the left breast. A clinical breast exam by your physician is recommended on an annual basis and results should be correlated with mammographic findings. [facility] will attempt to contact patient to return for supplemental views and ultrasound if indicated. Electronically signed and approved by: Jas Marie DO
== END | disposition home or self-care (01) ==
LOC: RADMAMWWP 16:08
PROVIDERS: ATTEND Family Medicine
DX: Z12.31 Encounter for screening mammogram for malignant neoplasm of breast (principal); Z80.3 Family history of malignant neoplasm of breast; Z90.721 Acquired absence of ovaries, unilateral
CPT/HCPCS: 77063; 77067

== ENCOUNTER → 2022-04-07 | Outpatient (CLI) | payer BC ==
--- NOTE | 2022-04-07 15:56 | MM ---
Reason for Exam: Additional evaluation requested from abnormal screening. Last screening mammogram was performed less than 1 month ago. Patient History: Menarche at age 16. First Full-Term at age 24. Right ovary removed at age 32. Hysterectomy at age 32. Maternal aunt had breast cancer. Risk Values: Yuly 5 year model risk: 0.8%. NCI Lifetime model risk: 7.5%. Prior Study Comparison: 12/27/2019 Bilateral MG 3D screening mammo w/cad, [facility]. 03/12/2021 Bilateral MG 3D screening mammo w/cad, [facility]. 03/29/2022 Bilateral MG 3D screening mammo w/cad, [facility]. Tissue Density: Left: The breast tissue is extremely dense which could obscure a lesion on mammography. Findings: Analyzed By CAD. Underlying circumscribed breast masses of varying size suggesting extensive cystic change. Regional and grouped microcalcifications centrally in the left breast middle to posterior depth becomes less pronounced on the magnification views. Suspect that there were accentuated on the synthesized views. Precautionary 6 month follow-up recommended. Overall Assessment: Probably benign, BI-RAD 3 Management: Diagnostic Mammogram of the left breast in 6 months. 1. Patient should continue monthly self breast exams. 2. A clinical breast exam by your physician is recommended on an annual basis. 3. This exam should not preclude additional follow-up of suspicious palpable abnormalities. Results were given to the patient verbally at the time of exam. Electronically signed and approved by: Christo Blackmon M.D. Radiologist
== END | disposition home or self-care (01) ==
LOC: RADMAMWWP 15:05
PROVIDERS: ATTEND Family Medicine
DX: R92.8 Other abnormal and inconclusive findings on diagnostic imaging of breast (principal); Z80.3 Family history of malignant neoplasm of breast; Z90.721 Acquired absence of ovaries, unilateral
CPT/HCPCS: 77061; 77065

== ENCOUNTER → 2023-06-16 | Outpatient (CLI) | payer BC ==
--- NOTE | 2023-06-19 19:31 | MM ---
Reason for Exam: Screening (asymptomatic). Last mammogram was performed 1 year(s) and 3 month(s) ago. Patient History: Menarche at age 16. First Full-Term at age 24. Right ovary removed at age 32. Hysterectomy at age 32. Maternal aunt had breast cancer. Risk Values: Yuly 5 year model risk: 0.8%. NCI Lifetime model risk: 7.4%. Prior Study Comparison: 03/12/2021 Bilateral MG 3D screening mammo w/cad, [facility]. 03/29/2022 Bilateral MG 3D screening mammo w/cad, [facility]. 04/07/2022 Left MG 3D work up w/cad , [facility]. Tissue Density: The breast tissue is heterogeneously dense. This may lower the sensitivity of mammography. Findings: Analyzed By CAD. Fluctuating bilateral circumscribed masses, large on the left. Overall decreasing in size on the right. Regional calcifications redemonstrated bilaterally. There is no suspicious group of microcalcifications or new suspicious mass in either breast. Overall Assessment: Benign, BI-RAD 2 Management: Screening Mammogram of both breasts in 1 year. . Patient should continue monthly self-breast exams. A clinical breast exam by your physician is recommended on an annual basis. This exam should not preclude additional follow-up of suspicious palpable abnormalities. Note on Yuly scores and lifetime risk: 1. A Yuly score greater than 3% is considered moderate risk. If this is the case, consider specialist referral to assess eligibility for a risk reducing agent. 2. If overall lifetime risk for the development of breast cancer is 20% or higher, the patient may qualify for future screening with alternating mammogram and breast MRI. Electronically signed and approved by: Christo Blackmon M.D. Radiologist
== END | disposition home or self-care (01) ==
LOC: RADMAMWWP 07:41
PROVIDERS: ATTEND Family Medicine
DX: Z12.31 Encounter for screening mammogram for malignant neoplasm of breast (principal); Z80.3 Family history of malignant neoplasm of breast
CPT/HCPCS: 77063; 77067

== ENCOUNTER 2023-07-28 08:22 | Day surgery (SDC) | payer BC ==
[2023-07-26 17:26] VITALS: BMI 20.9
[~2023-07-28 08:22] MED LIST: LACTATED RINGERS 1,000 ML IV SCH; LIDOCAINE 1% (10MG/ML) FOR IV START INTRADERMA PRN
[2023-07-28] MEDS: LACTATED RINGERS 1,000 ML IV ONE (09:13)
[2023-07-28 09:32] VITALS: RESP 16; TEMP 98.2
[2023-07-28] MEDS ORDERED: PROPOFOL 10 MG/ML 20 ML VIAL IV ONE (09:41)
[2023-07-28] MEDS ORDERED: MIDAZOLAM 2 MG/2 ML VIAL ONE (09:41)
--- NOTE | 2023-07-28 10:04 | P.PCN ---
Date of Procedure: 07/28/23 Procedure(s) Performed: BRIEF HISTORY: Patient is a 52-year-old pleasant white female scheduled for an elective colonoscopy as a part of screening for colon cancer. PROCEDURE PERFORMED: Colonoscopy With snare polypectomy PREOPERATIVE DIAGNOSIS: .Screening for colon cancer IV sedation per Anesthesia. PROCEDURE: After informed consent was obtained, the patient, was brought into the endoscopy unit. IV sedation was administered by Anesthesia under continuous monitoring. Digital rectal examination was normal. Initially the Olympus CF-160 flexible video colonoscope was then inserted in the rectum, gradually advanced into the cecum without any difficulty. Careful examination was performed as the scope was gradually being withdrawn. Ileocecal valve and the appendiceal orifice were visualized and appeared normal. Prep was excellent. Mucosa of the cecum, had a 1 cm broad-based polypoid ileocecal valve that was removed by snare polypectomy. Rest of the ascending colon, transverse colon, descending colon, sigmoid colon, and rectum appeared normal. scattered sigmoid diverticulosis Retroflexion was performed in the rectum and no lesions were seen. The patient tolerated the procedure well. IMPRESSION: 1 cm broad-based cecal polyp by the ileocecal valve status post snare polypectomy scattered sigmoid diverticulosis RECOMMENDATIONS: Findings of this examination were discussed with the patient as well as her family. She was advised to follow with the biopsy results. If the biopsy result adenoma she can have a repeat colonoscopy in 3 years
[2023-07-28 10:44] VITALS: BP 135/71; PULSE 65
== END 2023-07-28 11:22 | disposition home or self-care (01) ==
LOC: ORWHC2ENDO 08:22
PROVIDERS: ATTEND Internal Medicine Gastroenterology
DX: Z12.11 Encounter for screening for malignant neoplasm of colon (principal); D12.0 Benign neoplasm of cecum; K57.30 Diverticulosis of large intestine without perforation or abscess without bleeding; Z87.891 Personal history of nicotine dependence; Z79.899 Other long term (current) drug therapy; Z98.890 Other specified postprocedural states
CPT/HCPCS: 88305; 45385; J2250; J2704